=== PATIENT | female | born 1990 | race Caucasian/White ===

== ENCOUNTER 2020-07-16 19:13 | Emergency (ER) | payer OTHER, SELFPAY ==
[2020-07-16 19:25] VITALS: BP 136/93; PULSE 100; RESP 20; TEMP 37; O2SAT 100
--- NOTE | 2020-07-16 20:31 | ED.GENADULT ---
HPI - General Adult General Chief complaint: Skin/Abscess/Foreign Body Stated complaint: Insect Bite Time Seen by Provider: 07/16/20 20:31 Source: patient and RN notes reviewed Mode of arrival: ambulatory Limitations: no limitations History of Present Illness HPI narrative: 30-year-old female presents with complaints of red and itching rash to the back of the left lower leg for the past 8 days. ?[place] reports wasp bite 8 days ago, now has increasing redness, swelling, and warmth throughout LLL with blisters. ?Apple cider vinegar vinegar, Triple Antibiotic ointment, and Sudafed with Tylenol without relief. ?No burning, bleeding, or drainage. ?Denies fever, chills, headaches, weakness, fatigue, myalgia, facial swelling, or tongue swelling. Denies dyspnea or chest pain. ?LMP 07/12/2020. ?Remains active. The patient reports she was diagnosed with COVID-25 December 2019. The patient reports she received 2 Moderna COVID-19 vaccines. ?The patient reports she is not waiting for the results of a COVID-19 lab test. ?The patient reports she does not have a new or worsening cough or shortness of breath. ?The patient reports she does not have any rhinorrhea, congestion, sore throat, loss of taste or smell, nausea, vomiting, abdominal pain, and diarrhea.? Tolerating po intake well.? Denies recent traveling.? Denies concerns for COVID-19 or exposures.? At this time, the patient is not suspected of having COVID-19.?? Some parts of this dictation were generated by voice recognition software and may contain typographical and/or grammatical inaccuracies. Related Data Home Medications Medication Instructions Recorded Confirmed dextroamphetamine-amphetamine 10 mg PO DAILY 07/16/20 07/16/20 [Adderall XR] dextroamphetamine-amphetamine 30 mg PO DAILY 07/16/20 07/16/20 [Adderall XR] duloxetine 60 mg PO DAILY 07/16/20 07/16/20 Allergies Allergy/AdvReac Type Severity Reaction Status Date / Time Sulfa (Sulfonamide Allergy Mild Hives Verified 07/16/20 19:41 Antibiotics) latex Allergy Itching Verified 07/16/20 19:42 Review of Systems Review of Systems: Narrative: CONSTITUTIONAL: Denies fever, chills, sweats. EYES: Denies visual changes, redness, discharge. ENT: Denies otalgia, rhinorrhea, congestion, sore throat. CARDIOVASCULAR: Denies chest pain, palpitations, edema. RESPIRATORY: Denies dyspnea, wheezing, cough. GASTROINTESTINAL: Denies abdominal pain, nausea, vomiting, diarrhea. SKIN: Complaints of red and itching rash to the back of the left lower leg. Denies drainage. MUSCULOSKELETAL: Denies acute back pain, joint pain, or myalgia. NEUROLOGIC: Denies numbness or focal weakness. PSYCHIATRIC: Denies anxiety or depression. All systems reviewed & are unremarkable except as noted in HPI and below. [facility] Past Medical History Medical History ADHD (attention deficit hyperactivity disorder) Chronic middle ear infection COVID-19 12/2019 Obese Smoker Surgical History Surgical History (Updated 07/16/20 @ 20:46 by CONSTANCE Spann) History of tympanostomy Family History Family History (Updated 07/16/20 @ 20:47 by CONSTANCE Spann) Father Asthma Hypertension Hypercholesteremia Mother Asthma Social History Social History (Updated 07/16/20 @ 20:48 by CONSTANCE Spann) Smoking packs per day: 0.5 Smoking cigarettes per day: 10.0 Years smoked: 2 Smoking pack-years: 1.00 Smoking status: Current every day smoker Tobacco type: cigarettes Second hand tobacco smoke exposure: No Alcohol intake: current Substance use: never Substance use type: does not use Living arrangements: with family Occupation/Education: occupation Gender identity (if verbalized by the patient): Female Comments At time of signature, agree with the nurse past medical, surgical, social, and family history. There is no relevant family history pertinent to the presenting complaint. Exam Narrative: Exam Na
== END 2020-07-16 21:02 | disposition home or self-care (01) ==
PROVIDERS: Emergency Provider Nurse Practitioner Family
DX: L03.116 Cellulitis of left lower limb (principal); S90.562A Insect bite (nonvenomous), left ankle, initial encounter; W57.XXXA Bitten or stung by nonvenomous insect and other nonvenomous arthropods, initial encounter; F17.210 Nicotine dependence, cigarettes, uncomplicated; F90.9 Attention-deficit hyperactivity disorder, unspecified type
CPT/HCPCS: 99203; G0463